=== PATIENT | female | born 1965 | race Two or more races ===

== ENCOUNTER → 2019-08-06 | Outpatient (CLI) | payer BC ==
[2019-08-06 13:55] LABS: ALBUMIN 3.8 g/dL (3.4-5.0); ALBUMIN/GLOBULIN RATIO 1.1 (1.0-1.7); CALCIUM 9.1 mg/dL (8.5-10.1); CREATININE 0.8 mg/dL (0.6-1.0); DIRECT BILIRUBIN 0.1 mg/dL (0.0-0.2); TOTAL BILIRUBIN 0.3 mg/dL (0.2-1.0); TOTAL PROTEIN 7.3 g/dL (6.4-8.2)
== END | disposition home or self-care (01) ==
LOC: LAB 13:10
PROVIDERS: ATTEND Internal Medicine Pulmonary Disease
DX: Z22.8 Carrier of other infectious diseases (principal)
CPT/HCPCS: 36415; 80053; 80076

== ENCOUNTER → 2019-09-18 | Outpatient (CLI) | payer BC ==
[2019-09-18 15:39] LABS: ALBUMIN 3.7 g/dL (3.4-5.0); ALK PHOS 84 U/L (46-116); ALT (SGPT) 33 U/L (14-59); AST (SGOT) 23 U/L (15-37); DIRECT BILIRUBIN < 0.1 mg/dL (0.0-0.2); TOTAL BILIRUBIN 0.2 mg/dL (0.2-1.0); TOTAL PROTEIN 6.6 g/dL (6.4-8.2)
== END ==
LOC: LAB 14:38
PROVIDERS: ATTEND Internal Medicine Pulmonary Disease
DX: A15.0 Tuberculosis of lung (principal)
CPT/HCPCS: 36415; 80076